=== PATIENT | female | born 1985 | race Caucasian/White ===

== ENCOUNTER 2019-10-17 12:39 | Day surgery (SDC) | payer OTHER ==
[~2019-10-17] VITALS: Ht 165.1 cm; Wt 90.7 kg
--- NOTE | 2019-10-17 12:43 | NUR ---
KERI WANG at bedside examining patient.
[2019-10-17] MEDS ORDERED: NACL 0.9% 1,000 ML IV ONE ×3 (12:45→15:30)
[2019-10-17] MEDS ORDERED: ONDANSETRON HCL 4 MG/2 ML VIAL IVP ONE ×2 (12:45→16:50)
[2019-10-17] MEDS ORDERED: MORPHINE 4 MG/ML INJ. SYRINGE IVP ONE ×2 (12:45→16:00)
--- NOTE | 2019-10-17 12:45 | NUR ---
Patient to ER bed 2 to gown for evaluation. Side rails up.
[2019-10-17 12:48] VITALS: BP_SYST 125
--- NOTE | 2019-10-17 12:50 | NUR ---
Patient presented to ER with hypotension and vaginal bleeding BIB BLS. Patient A&Ox4, skin pink and warm, N/V/D present, vaginal bleeding, pale. Patient states she was seen at [facility] yesterday for miscarriage/ demise,IVF 8 weeks ago. today vaginal bleeding continued with increased pain, N/V/D. Patient states last PO intake was today at 1030.
--- NOTE | 2019-10-17 13:30 | NUR ---
# 14 FR In and Out catheter with use of sterile technique. Immediate return of 30 ml YELLOW urine noted. Urine sample collected and sent to lab. Pt tolerated procedure WELL. Patient unable to toilet self.
[2019-10-17 14:06] LABS: BASOPHILS % (AUTO) 0.3 % (0.0-2.0); EOSINOPHILS # (AUTO) 0.1 K/uL (0.0-0.4); EOSINOPHILS % (AUTO) 0.7 % (0.0-4.0); HEMATOCRIT 40.6 % (36-48); HEMOGLOBIN 13.6 g/dL (12.0-16.0); LYMPHOCYTES # (AUTO) 1.7 K/uL (1.0-5.5); MEAN CORPUSCULAR HEMOGLOBIN 31 pg (27-31); MEAN CORPUSCULAR HGB CONC 34 % (32-36); MEAN CORPUSCULAR VOLUME 92 fL (79.0-98.0); MONOCYTES # (AUTO) 0.9 K/uL (0.0-1.0); NEUTROPHILS # (AUTO) 14.5 K/uL (1.8-7.7); PLATELET COUNT (AUTO) 265 K/uL (130-430); RED BLOOD CELL COUNT(AUTO) 4.41 MIL/uL (4.2-6.2); WHITE BLOOD COUNT (AUTO) 17.2 K/uL (4.8-10.8)
[2019-10-17 14:20] LABS: BILIRUBIN,URINE NEGATIVE (NEGATIVE); BLOOD, URINE 3+ (NEGATIVE); CLARITY/URINE CLOUDY (CLEAR); COLOR,URINE YELLOW (YELLOW); GLUCOSE,URINE NEGATIVE (NEGATIVE); KETONES,URINE 1+ (NEGATIVE); LEUKOCYTE ESTERASE ,URINE NEGATIVE (NEGATIVE); NITRITE, URINE NEGATIVE (NEGATIVE); PH,URINE 6.5 (5.0-8.0); PROTEIN URINE NEGATIVE (NEGATIVE); UROBILINOGEN,URINE 0.2 (0.2-1.0)
[2019-10-17 14:27] LABS: CALCIUM 8.8 mg/dL (8.4-11.0); CREATININE 0.75 mg/dL (0.55-1.30); POTASSIUM 3.8 mmol/L (3.5-5.1)
[2019-10-17 14:30] LABS: BACTERIA,URINE FEW /HPF (None Seen); RBC,URINE 20-50 /HPF (0-3); WBC,URINE 0-3 /HPF (0-3)
[2019-10-17] MEDS ORDERED: PIPERACILLIN/TAZO 3.375 GM in NS 50 ML IV ONE (14:30)
[2019-10-17] MEDS ORDERED: PIPERACILLIN/TAZOBACTAM 3.375 GM/VIAL (ZOSYN) IV ONE (14:46)
[2019-10-17 14:56] LABS: ALBUMIN 3.1 g/dL (3.4-4.8); TOTAL BILIRUBIN 0.3 mg/dL (0.0-1.0)
[2019-10-17] MEDS ORDERED: VANCOMYCIN HCL 1,000 MG in NS 250 ML IV ONE (15:30)
[2019-10-17 15:33] LABS: PROTHROMBIN TIME 9.9 SECS (9.5-12.5)
--- NOTE | 2019-10-17 15:40 | NUR ---
Medicated per MD orders. IVF infusing with no s/s of infiltration at this time. Will cont to monitor
[2019-10-17] MEDS ORDERED: VANCOMYCIN HCL 1000 MG/VIAL IV ONE (15:45)
--- NOTE | 2019-10-17 15:50 | NUR ---
Dr. Cervantes at bedside informing patient of plan of care. Patient agrees to stay for emergency D & C with Dr. Victor
--- NOTE | 2019-10-17 16:40 | NUR ---
PRE OP CHECKLIST COMPLETED AND SIGNED. CONSENT FOR ANESTHESIA AND SURGERY SIGNED BY PATIENT AND DOCTOR AND WITNESS BY MYSELF. ALL QUESTIONS ANSWERED. PATIENT OFF UNIT TO SURGERY WITH OR NURSE. VSS.
[2019-10-17] MEDS ORDERED: PROPOFOL 200MG/ 20ML VIAL (DIPRIVAN) IV ONE (16:50)
[2019-10-17] MEDS ORDERED: fentaNYL CITRATE/PF 100 MCG/2 ML AMP IVP ONE (16:50)
[2019-10-17] MEDS ORDERED: MIDAZOLAM HCL 5 MG/5 ML VIAL IVP ONE (16:50)
[2019-10-17] MEDS ORDERED: SEVOFLURANE 15 MIN GAS INH ONE (16:50)
[2019-10-17] MEDS ORDERED: NS 1000 ML IV.SOLN IV ONE (16:50)
[2019-10-17 17:20] VITALS: BP_SYST 104
[2019-10-17] MEDS ORDERED: ONDANSETRON HCL 4 MG/2 ML VIAL IVP PRN (17:30)
[2019-10-17] MEDS ORDERED: NACL 0.9% 1,000 ML IV SCH (17:33)
[2019-10-17] MEDS ORDERED: MORPHINE 4 MG/ML INJ. SYRINGE IVP PRN ×3 (17:45)
[2019-10-17] MEDS ORDERED: METOCLOPRAMIDE HCL 10 MG/2 ML VIAL IVP PRN (17:45)
[2019-10-17] MEDS ORDERED: MORPHINE 4 MG/ML INJ. SYRINGE ONE (18:11)
[2019-10-17] MEDS ORDERED: KETOROLAC TROMETHAMINE 30 MG VIAL IVP ONE (18:30)
--- NOTE | 2019-10-17 19:00 | NUR ---
Note Pt arrived from PACU via bed to room at 1840. Pt AAOX4. IV in right AC intact and patent infusing IVF's well. VS taken. Pt has peripad on at this time. No SOB/resp distress or severe abdominal pain/cramping/discomfort noted at this time. Pt was given at water as requested and an emesis bag and tissue box as well. No needs noted at this time. Pt's came to room and sitting at bedside at this time. Call light within reach. Pt oriented to room and nursing routines and procedures. Questions/concerns were answered at this time.
--- NOTE | 2019-10-17 19:15 | NUR ---
OPENING NOTE RECEIVED CARE OF PT AND SBAR REPORT. PT RESTING IN BED, AAOX4, WITH FAMILY AT BEDSIDE. PT REPORTING FEELING NAUSEAS. NO S/S OF ACUTE DISTRESS, BREATHING IS UNLABORED TO ROOM AIR. SAFETY AND FALL PRECAUTIONS ARE IN PLACE. WILL MONITOR.
--- NOTE | 2019-10-17 20:05 | NUR ---
AMBULATED TO RESTROOM PT AMBULATED TO RESTROOM WITH STEADY GAIT. PT ABLE TO URINATE. PT PROVIDED WITH NEW PERIPAD AND UNDERWEAR. PT RETURNED TO BED AND REPOSITIONED HERSELF FOR COMFORT. SAFETY PRECAUTIONS MAINTAINED. WILL MONITOR.
--- NOTE | 2019-10-17 20:24 | NUR ---
NAUSEA/ZOFRAN PT GIVEN ZOFRAN 4 MG IVP FOR REPORT OF NAUSEA. MEDICATION INDICATION AND POTENTIAL SIDE EFFECTS DISCUSSED WITH PT, PT VERBALIZED UNDERSTANDING. WILL MONITOR.
[2019-10-17] MEDS ORDERED: ONDANSETRON HCL 4 MG/2 ML VIAL ONE (20:37)
--- NOTE | 2019-10-17 22:15 | NUR ---
DISCHARGE PT STATES THAT SHE IS READY TO LEAVE. PT HELPED TO CHANGE INTO HER REGULAR [employer]OTHES BY . DR. FERNANDEZ CALLED AND ASKED IF PT NEEDS TORADOL PRIOR TO LEAVING. DR. FERNANDEZ STATED THAT PT DID NOT NEED IT AND PT COULD LEAVE IF SHE WAS READY. NAME BAND CUT OFF. IV'S D/C'D. PT'S HAS PT'S PRESCRIPTIONS. PT TAKEN TO CAR BY PRIMARY NURSE VIA WHEELCHAIR.
[2019-10-21 04:06] LABS: CHLAMYDIA TRACHOMATIS NAA Negative (Negative); NEISSERIA GONORRHOEAE NAA Negative (Negative)
== END 2019-10-17 22:15 | disposition home or self-care (01) ==
LOC: SED 12:39 → SDS 16:20 → SED 16:40 → SDS 16:40
PROVIDERS: ATTEND Specialist
DX: O03.4 Incomplete spontaneous abortion without complication (principal); N93.9 Abnormal uterine and vaginal bleeding, unspecified; E66.3 Overweight; J45.901 Unspecified asthma with (acute) exacerbation; Z90.89 Acquired absence of other organs; Z98.890 Other specified postprocedural states
CPT/HCPCS: 36415; 59812; 71045; 76801; 76817; 80053; 81000; 83605; 84702; 85025; 85610; 85730; 86900; 86901; 87040; 87086; 87491; 87591; 88305; 93005; J2250; J2270; J2405; J2543; J2704; J3010; J3370; J7030